=== PATIENT | female | born 1990 | race Hispanic/Latino ===

== ENCOUNTER 2021-08-13 05:58 | Day surgery (SDC) | payer OTHER ==
[2021-08-10 13:18] LABS: Absolute Lymphocytes (CBC) 1.9 K/uL (0.7-4.9); Basophils % 0.3 % (0-1.3); Hematocrit 37.3 % (36.0-45.0); Lymphocytes % 21.7 % (15.3-44.8); MPV 8.3 fL (7.6-11.3); RBC Red Blood Cell Count 4.75 M/uL (3.86-4.86)
[2021-08-10 13:30] LABS: Urine Appearance SL CLOUDY (Clear); Urine Bilirubin NEGATIVE (Negative); Urine Blood 3+ (Negative); Urine Color YELLOW (Yellow); Urine Glucose NEGATIVE (Negative); Urine Microscopic Reflex ORDER UMIC; Urine Protein NEGATIVE (Negative); Urine Specific Gravity >1.030 (1.005-1.030); Urine Urobilinogen 0.2 mg/dL (0.2-1.0)
[2021-08-10 13:32] LABS: Urine Bacteria <20 /HPF (<20); Urine Mucus SLIGHT /HPF (NONE SEEN); Urine RBC >50 /HPF (NONE SEEN)
[2021-08-13] MEDS ORDERED: SCOPOLAMINE HYDROBROMIDE PATCH TD ONE ×2 (06:12→06:18)
[2021-08-13] MEDS ORDERED: Ringers Lactate 1,000 ML IV ONE ×2 (06:12→08:30)
[2021-08-13 06:18] LABS: Specific Gravity > 1.030 (1.005-1.030)
[2021-08-13] MEDS ORDERED: propofoL 200 MG/20 ML VIAL IV ONE (07:18)
[2021-08-13] MEDS ORDERED: dexAMETHasone 10 MG/ML VIAL ONE (07:18)
[2021-08-13] MEDS ORDERED: LIDOCAINE 2% MPF 5 ML VIAL ONE (07:18)
[2021-08-13] MEDS ORDERED: ROCURONIUM 50 MG/5 ML VIAL IV ONE ×2 (07:18→11:33)
[2021-08-13] MEDS ORDERED: MIDAZOLAM HCL 2 MG/2 ML INJ ONE (07:19)
[2021-08-13] MEDS ORDERED: FENTANYL CITR 250 MCG/5 ML ONE (07:19)
[2021-08-13] MEDS ORDERED: ONDANSETRON 4 MG/2 ML VIAL ONE (07:21)
[2021-08-13] MEDS ORDERED: CELECOXIB 100 MG CAPSULE ONE (07:54)
[2021-08-13] MEDS ORDERED: ACETAMINOPHEN 500 MG TAB ONE (07:54)
[2021-08-13] MEDS ORDERED: CELECOXIB 100 MG CAPSULE PO ONE (07:56)
[2021-08-13] MEDS ORDERED: ACETAMINOPHEN 500 MG TAB PO ONE (07:56)
[2021-08-13] MEDS: CEFAZOLIN/NS 1gm 1 GM/50 ML BAG ONE ×2 (08:10→09:00)
[2021-08-13] MEDS: CEFAZOLIN/SWI 2gm 2 GM/20 ML SYR ONE ×2 (08:10→09:00)
[2021-08-13] MEDS ORDERED: BUPIVACAINE 0.25% PF 30 ML VIAL ONE (08:30)
[2021-08-13] MEDS ORDERED: METHYLENE BLUE 0.5% 10 ML AMP ONE (09:10)
[2021-08-13] MEDS ORDERED: LIDOCAINE 1% W/EPI 1:100,000 MDV 20 ML VIAL ONE (09:11)
[2021-08-13] MEDS ORDERED: NA CHLORIDE 0.9% 100 ML IV ONE (09:11)
[2021-08-13] MEDS ORDERED: GLYCOPYRROLATE 0.2 MG/ML SYR ONE ×2 (09:32→12:34)
[2021-08-13] MEDS: VASOPRESSIN 20 UNIT/ML VIAL ONE ×2 (09:50→10:57)
[2021-08-13] MEDS ORDERED: FENTANYL CITR 100 MCG/2 ML ONE (10:56)
[2021-08-13] MEDS: Ringers Lactate 1,000 ML IV ONE ×2 (11:19→12:21)
[2021-08-13] MEDS ORDERED: LABETALOL 20 MG/4ML SYRINGE IV ONE (12:03)
[2021-08-13] MEDS ORDERED: KETOROLAC 30 MG/ML INJ ONE ×2 (12:31→13:25)
[2021-08-13] MEDS ORDERED: NEOSTIGMINE 1 MG/ML -5 ML ONE (12:34)
[2021-08-13] MEDS ORDERED: Mastisol Adhesive Liq ONE (13:00)
[2021-08-13] MEDS ORDERED: MEPERIDINE HCL 25 MG/ML SYR IM PRN (13:29)
[2021-08-13] MEDS ORDERED: HYDROCODONE/APAP 5/325 MG TAB PO PRN (13:29)
[2021-08-13] MEDS ORDERED: PROMETHAZINE INJ 25 MG/ML AMP IV PRN (13:29)
--- NOTE | 2021-08-13 13:35 | P.BOP ---
Preoperative diagnosis: AUB-L, dysmenorrhea, pelvic pain Postoperative diagnosis: same and endometriosis, right paratubal cyst, Primary procedure: hysteroscopy d/c, laparoscopy myomectomy,endometriosis excision Secondary procedure: chromotubation, right para tubal cyst drainage and bio psy,minilap Other procedure(s): for myoma contained extraction Alkylation Operator: Mela Ochoa Estimated blood loss: 150 Specimen: fibroids, rt paratubal cyst bx/endo L round lig and R USL lig, post uterine Findings: endo and leiomyomata, one large compound and two others Anesthesia: GETA Complications: None Transferred to: Recovery Room Condition: Good
[2021-08-13] MEDS: HYDROMORPHONE HCL 1 MG/ML INJ ONE ×2 (13:53→14:01)
[2021-08-13] MEDS ORDERED: ALBUTEROL 2.5 MG/3 ML NEB SOL ONE (14:10)
[2021-08-13] MEDS ORDERED: HYDROCODONE/APAP 5/325 MG TAB ONE (15:48)
[2021-08-13 16:11] VITALS: BP 105/60; TEMP 98.5; O2SAT 97
[2021-08-13] MEDS ORDERED: PREGABALIN 50 MG CAP PO SCH (21:00)
--- NOTE | 2021-08-14 02:12 | OP ---
Date of Procedure: 08/13/2021 Surgeon: Daly Lopez MD Web Application Tester: Mela Ochoa. Preoperative Diagnoses: Menorrhagia, dysmenorrhea, pelvic pain, fibroids (abnormal uterine bleeding- leiomyomas), desires to have fertility, 0. Postoperative Diagnoses: Abnormal uterine bleeding-leiomyomas, dysmenorrhea, endometriosis, right pa ratubal cyst. Primary Procedure: Hysteroscopy, D and C, laparoscopy, myomectomy, endometriosis excision, chromotub ation, right paratubal cyst, drainage and biopsy. Mini lap to extract the myoma, closed contained ex traction was performed through the suprapubic port site that was extended. Anesthesia: General endotracheal. Estimated Blood Loss: 150. Specimens: Fibroids, right paratubal cyst biopsy, endometriosis of the left round ligament, right ut erosacral ligament and posterior uterine aspect, both of them together one specimen and endometrial c urettings. Findings: Leiomyomata, the largest 6.5 cm myoma with anterior with a complex myoma with at least 3-4 leiomyomata all extracted and compounded together. Then there was one on the right fundal aspect an d then one in the left posterior wall of the fundus. The last 2 were 1 subserosal and other with a s ubserosal extension and intramural fibroid, the top one most likely transmural, 4-layer closure was d one with a 2-0 V-Loc suture. Endometriosis was found in the distal right uterosacral ligament going on the serosa of the uterus th en left round ligament and the mesosalpinx closed and posterior to the myoma on the left fu ndal aspect posterior wall. All endometriosis excised. No other endo was seen anywhere else. The a ppendix appeared to be normal. No other pathology. The tube on the right side was patent. The left tube appeared to be completely intact without any hydrosalpinx or distortions. However, there was n o spill on this side. I suspect that there could be spasm, tried it twice, but it was still not very easy to identify the blue dye coming through it. Paratubal cysts were noted. The one on the right is the largest. Due to the proximity to the fimbri ated end, I did not want to excise this. So I drained it and took a good biopsy of a little firm nod ule that was present inside this paratubal cyst which was abnormal and as it was not even close to th e ovary, this was biopsied. On the left side, there was a small paratubal cyst, did not need any rem oval or drainage. Description Of Procedure: After informed consent was verified, the patient was taken back to the OR, placed in supine fashion on the operating table. General anesthesia was given. She was placed in d orsal lithotomy position. Arms were tucked by the side. Ancef was given. Abdomen, vulva, vagina, a nd perineum prepped and draped in a sterile fashion. Leonard placed to drain the bladder and speculum placed to expose the cervix. Diagnostic SlimLine hysteroscope, 30-degree lens, normal saline were us ed for direct hysteroscopy into the uterine cavity. Inside of the cavity was surveyed, it appeared to be impending, but no intracavitary masses were seen. Both tubal ostia were visualized. Scope was p ulled out. The uterine manipulator was introduced into the uterus, fixed in place. Leonard was attach ed to a drainage bag. 1 cm infraumbilical incision made with scalpel using open laparoscopy technique, fascia was incised, and peritoneum entered bluntly, S retractors placed. Annia introduced. After adequate insufflation , the patient was placed in Trendelenburg. A 10 mm suprapubic and two 5s in the left lower quadrant, left upper quadrant, anterior axillary line, and midclavicular line were placed. Then, after survey ing the pelvic cavity and noting the endometriosis which correlated with our ultrasound fin dingmaria elena, then proceeded with doing a myomectomy first. Incision was made on the anterior cephalad portion of the uterine wall after injecting with dilute va sopressin 20 cc with a dilution of 20 units mixed in 40 cc of normal saline injected with a spinal ne edle to the anterior abdominal wall. Once this was done, monopolar needle was used to incise the jennifer metrial layers until a fibroid was visualized. Fibroid was held with a single-tooth tenaculum and ex tracted by creating space all the round. Then later as this was being pulled out more, I can see the fibroids, showed that this was a compound leiomyoma and so all these were extracted one after the ot her. A 0 Vicryl suture was placed for retraction on this. Once this was removed completely, the bas e was cauterized with bipolar. This was placed in the posterior cul-de-sac. Closure was performed, almost close to the endometrial cavity, a layer was done in the sub-endometrium in a continuous runni ng fashion. Then [address] the way to the serosa were closed with a 2-0 V-Loc . Then, the myoma on the right was incised after vasopressin 10 cc was injected, incised with a monopol ar, excised, sutured with 2-0 V-Loc. Then, on the posterior wall, similar injection performed, myome ctomy performed. This was more into the myometrium. So this was closed in 2 layers. Endometriosis excision was performed first on the left round ligament. This was excised completely w ith the help of monopolar as well as a bipolar. Then, the posterior uterosacral ligament endo was ci rcumscribed first with the monopolar and then excised completely with the help of the tip of the Liga Sure. Posterior to the myoma, there was endometriotic implant, which was excised as well. Chromotubation was performed. The tubal cysts were noted. This was drained on the right side. Then biopsy was done on the wall, which was thickened and irregular. The tube filled and spilled on the right side without a problem. On the left side, did not see after injecting 46 cc of dilute methylen e blue, stopped at this, checked the fimbriated end. It was patent. So there was no need to perform anything further here. So plan is to perform postop. Thorough irrigation and suction were performed and all the trocars were removed under direct vision. The umbilical fascia closed with 0 Vicryl tag sutures, tied to each other and chromic sutures 3-0 fo r all other incisions. Suprapubically, after the specimens were all placed in a bag, this was katrin t out through the umbilical port and this was extended to 3 cm on the fascia as well and the skin the n once the specimen was slightly morcellated, it was able to be extracted without any further morcell ation was contained and the bag was removed. Fascia was closed with 0 Vicryl in a continuous running fashion. Subcuticular sutures with 4-0 Vicryls done. Then went down and removed the manipulator an d did a D and C. All instruments were removed, Leonard. Instrument and sponge counts were correct at the end of case. The patient tolerated the procedure well. She will follow up with me in 1 week. I did dis cuss all these with the . GEOVANNA/PANCHITO Voice ID: [id number] Report ID: [id number]
[2021-08-20] MEDS ORDERED: ETHINYL ESTRADIOL TD SCH (09:00)
[2021-08-20] MEDS ORDERED: NORELGESTROMIN TD SCH (09:00)
[2021-08-20] MEDS ORDERED: [UNRECOGNIZED DRUG - OTHER] TD SCH (09:00)
== END 2021-08-13 16:30 | disposition home or self-care (01) ==
LOC: OR 05:58
PROVIDERS: ATTEND Obstetrics & Gynecology
PROC: 0UJD8ZZ Inspection of Uterus and Cervix, Via Natural or Artificial Opening Endoscopic (ICD-10-PCS; 2021-08-13)
PROC: 0UB44ZZ Excision of Uterine Supporting Structure, Percutaneous Endoscopic Approach (ICD-10-PCS; 2021-08-13)
PROC: 0UB94ZZ Excision of Uterus, Percutaneous Endoscopic Approach (ICD-10-PCS; 2021-08-13)
PROC: 0WJG0ZZ Inspection of Peritoneal Cavity, Open Approach (ICD-10-PCS; 2021-08-13)
PROC: 0UDB7ZX Extraction of Endometrium, Via Natural or Artificial Opening, Diagnostic (ICD-10-PCS; principal; 2021-08-13 08:15)
DX: N80.3 Endometriosis of pelvic peritoneum (principal); R11.0 Nausea; D25.9 Leiomyoma of uterus, unspecified; E66.01 Morbid (severe) obesity due to excess calories; E28.2 Polycystic ovarian syndrome; N80.0 Endometriosis of uterus; N83.8 Other noninflammatory disorders of ovary, fallopian tube and broad ligament; Z20.822 Contact with and (suspected) exposure to COVID-19
CPT/HCPCS: 85025; 36415; 86900; 86850; 81025; 86901; 88304; 88305; 58558; 58662; 58545; 49322; U0002; J2704; J2250; J3010 ×2; J1100; J1170; J2710; J0690 ×2; J7120 ×3; J2405; 81003; 81015

== ENCOUNTER 2023-08-03 20:33 | Observation (INO) | payer OTHER ==
--- OUTSIDE RECORDS SUMMARY | 2023-08-03 20:35 | XMS REPORT | Continuity of Care Document ---
:1990 Author Organization [facility] t Address [address] [place] [address] Care Team Providers Name Role Phone [email or web address] Attending Clinician Unavailable [email or web address] Admitting Clinician Unavailable Problems This patient has no known problems. Allergies, Adverse Reactions, Alerts This patient has no known allergies or adverse reactions. Medications This patient has no known medications. Procedures This patient has no known procedures. Encounters Start End Encounter Admission Attending Care Care Encounter Source Date/Time Date/Time Type Type Clinicians Facility Department ID 2023-07-23 2023-07-23 Outpatient [email or web address] PRIV PRIV [id number] [facility] 00:00:00 00:00:00 sindya_S [id number] Medic al Results This patient has no known results.
[2023-08-03 21:38] LABS: Hematocrit 38.3 % (36.0-45.0); Lymphocytes % 8.6 % (15.3-44.8); MCV 73.3 fL (80-100); MPV 8.2 fL (7.6-11.3); Platelets 276 thou/uL (152-406); RBC Red Blood Cell Count 5.22 M/uL (3.86-4.86)
[2023-08-03] MEDS ORDERED: FAMOTIDINE 20 MG/2 ML VIAL IV ONE (21:39)
[2023-08-03] MEDS ORDERED: NA CHLORIDE 0.9% 1,000 ML ONE (21:39)
[2023-08-03] MEDS ORDERED: KETOROLAC 30 MG/ML INJ ONE (21:39)
[2023-08-03] MEDS ORDERED: ONDANSETRON 4 MG/2 ML VIAL ONE (21:39)
[2023-08-03 22:36] LABS: Albumin 3.7 g/dL (3.4-5.0); Bilirubin Total 0.9 mg/dL (0.2-1.0); Potassium 3.2 mEq/L (3.5-5.1); Protein, Total 7.8 g/dL (6.4-8.2)
[2023-08-03 23:12] LABS: Specific Gravity 1.023 (1.005-1.030)
[2023-08-03 23:33] LABS: Specific Gravity 1.023 (1.005-1.030); Urine Bacteria None Seen /HPF (<20); Urine Bilirubin NEGATIVE (Negative); Urine Blood Negative (Negative); Urine Clarity Extremely Turbid (Clear); Urine Color Yellow (Yellow); Urine Glucose NEGATIVE (Negative); Urine Mucus Slight /HPF (None Seen); Urine Protein TRACE (Negative); Urine RBC <5 /HPF (None Seen); Urine Urobilinogen 2+ (Normal)
--- NOTE | 2023-08-04 02:20 | EDPHYS ---
Physician Documentation [facility] Name: Margret Kearns Age: 32 yrs Sex: Female : 1990 Arrival Date: 08/03/2023 Time: 20:33 Bed 17 Private MD: OFEILA Physician Pedrito Grey HPI: 08/03 22:55 This 32 yrs old Female presents to ER via Ambulatory with complaints of Low kb Back Pain, Abdominal Pain, Shortness Of Breath. 22:55 The patient has not recently seen a physician. Patient is a 32-year-old female who kb presents for bilateral flank pain and upper abdominal pain that started today.. 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 - Social history:: Smoking status: Patient denies any tobacco usage or history of. Patient/guardian denies using alcohol, street drugs. ROS: 22:54 Constitutional: Negative for fever, chills, and weight loss, kb 22:54 Abdomen/GI: Positive for abdominal pain, nausea, 22:54 Back: Positive for flank pain, bilaterally, 22:54 All other systems are negative, Exam: 22:54 Constitutional: This is a well developed, well nourished patient who is awake, alert, kb and in no acute distress. Head/Face: Normocephalic, atraumatic. ENT: Moist Mucous membranes Cardiovascular: Regular rate Respiratory: Respirations even and unlabored. No increased work of breathing. Talking in full sentences Skin: Warm, dry with normal turgor. Normal color. MS/ Extremity: Pulses equal, no cyanosis. Neurovascular intact. Full, normal range of motion. Neuro: Awake and alert, GCS 15, oriented to person, place, time, and situation. Moves all extremities. Normal gait. 22:54 Abdomen/GI: Inspection: abdomen appears normal, Bowel sounds: normal, Palpation: soft, in all quadrants, moderate abdominal tenderness, in the right upper quadrant and left upper quadrant, 22:54 Back: CVA tenderness, that is mild, that is moderate, is noted bilaterally, Vital Signs: 20:46 BP 108 / 95; Pulse 76; Resp 17 S; Temp 98.6(O); Pulse Ox 100% on R/A; Weight 101.15 kg lg3 (R); Height 5 ft. 2 in. (R); 21:45 BP 113 / 64; Pulse 78; Resp 19; Pulse Ox 100% ; jj7 22:54 BP 111 / 62; Pulse 70; Resp 17; Pulse Ox 99% ; Pain 0/10; jj7 08/04 00:00 BP 121 / 57; Pulse 67; Resp 17; Pulse Ox 98% ; jj7 01:00 BP 105 / 60; Pulse 56; Resp 17; Pulse Ox 99% ; jj7 01:44 BP 104 / 56; Pulse 60; Resp 17; Pulse Ox 97% ; jj7 08/03 20:46 Body Mass Index 40.79 (101.15 kg, 157.48 cm) lg3 22:54 Pain Scale: Adult jj7 MDM: 08/03 20:43 Patient medically screened. kb 22:54 Data reviewed: vital signs, nurses notes. kb 22:55 Differential diagnosis: nephrolithiasis, pyelonephritis, UTI, pancreatitis, kb Cholelithiasis, cholecystitis. 08/04 02:19 Counseling: I had a detailed discussion with the patient and/or guardian regarding the kb historical points, exam findings, and any diagnostic results supporting the discharge/admit diagnosis, lab results, radiology results, the need for further work-up and treatment in the hospital. 02:34 Consideration of Admission/Observation Patient was admitted/placed on observation. kb Escalation of care including admission/observation considered. Management of patient was discussed with the following: Plastic Cutter: Dr Tucker, message left. . 08/03 20:49 Order name: CBC with Diff; Complete Time: 21:40 kb 08/03 20:49 Order name: CMP; Complete Time: 22:38 kb 08/03 20:49 Order name: Lipase; Complete Time: 22:38 kb 08/03 20:49 Order name: Test, Urine; Complete Time: 23:33 kb 08/03 20:49 Order name: Urinalysis w/ reflexes; Complete Time: 23:42 kb 08/03 20:49 Order name: CT Abd/Pelvis - IV Contrast Only kb 08/04 00:23 Order name: US Abdomen Limited kb 08/03 20:49 Order name: IV Saline Lock; Complete Time: 21:33 kb 08/03 20:49 Order name: Labs collected and sent; Complete Time: 21:34 kb Administered Medications: 08/03 21:34 Drug: NS 0.9% IV 1000 ml IV at 1 bolus Per protocol; 1000 mL bolus Route: IV; Rate: 1 jj7 bolus; Site: right antecubital; 21:34 Drug: Famotidine IVP 20 mg IVP once; dilute with 10 mL 0.9% NaCl; give over 2 minutes jj7 Route: IVP; Site: right antecubital; 23:05 Follow up: Response: Marked relief of symptoms jj7 21:35 Drug: TORadol - Ketorolac IVP 15 mg IVP once Route: IVP; Site: right antecubital; jj7 23:05 Follow up: Response: Marked relief of symptoms jj7 21:35 Drug: Ondansetron IVP 4 mg IVP once; over 2 minutes Route: IVP; Site: right antecubital;jj7 23:05 Follow up: Response: Marked relief of symptoms jj7 08/04 02:52 Drug: Piperacillin-Tazobactam IVPB 3.375 grams IVPB once over 60 mins; (mix in NS 100 jj7 mL) Route: IVPB; Infused Over: 60 mins; Site: right antecubital; Disposition Summary: 08/04/23 02:20 Hospitalization Ordered Notes: Hospitalization Status: Observation kb Provider: Miguel Tucker Condition: Stable kb Problem: new kb Symptoms: are unchanged kb Bed/Room Type: Standard kb Location: [facility] ER HOLD(08/04/23 03:09) Room Assignment: ERHOLD-(08/04/23 03:09) cg Diagnosis - Other cholelithiasis without obstruction kb - Abnormal results of liver function studies kb Forms: - Medication Reconciliation Form kb - SBAR form kb - Leadership Thank You Letter kb Signatures: Dispatcher [employer] Fartun Flood, PEDRO PABLO MOSS-Sonia Sena RN RN cg Laverne Louise RN RN lg3 Krystyna Maldonado RN RN jj7 Corrections: (The following items were deleted from the chart) 02:20 Tele[facility]urg [facility]ation) [facility] 02:20 kb
--- NOTE | 2023-08-04 02:20 | ER ---
Nurse's Notes [facility] Name: Margret Kearns Age: 32 yrs Sex: Female : 1990 Arrival Date: 08/03/2023 Time: 20:33 Bed 17 Private MD: Diagnosis: Other cholelithiasis without obstruction;Abnormal results of liver function studies Presentation: 08/03 20:46 Chief complaint: Patient states: pain to right and left flank radiating to lower lg3 abdomen with cold sweats. Coronavirus screen: Client denies travel out of the [place] in the last 14 days. At this time, the client does not indicate any symptoms associated with coronavirus-19. Ebola Screen: No symptoms or risks identified at this time. Initial Sepsis Screen: Does the patient meet any 2 criteria? No. Patient's initial sepsis screen is negative. Does the patient have a suspected source of infection? No. Patient's initial sepsis screen is negative. Risk Assessment: Do you want to hurt yourself or someone else? Patient reports no desire to harm self or others. Onset of symptoms is unknown. 20:46 Method Of Arrival: Ambulatory lg3 20:46 Acuity: JOANN 3 lg3 Triage Assessment: 20:48 General: Appears in no apparent distress. uncomfortable, Behavior is cooperative, lg3 anxious, fussy. Pain: Complains of pain in back and abdomen. EENT: No deficits noted. No signs and/or symptoms were reported regarding the EENT system. Neuro: No deficits noted. Price Agitation-Sedation Scale (RASS): +1 Restless Level of Consciousness is awake, alert, obeys commands, Oriented to person, place, time, situation. Cardiovascular: No deficits noted. Denies chest pain, shortness of breath, Capillary refill < 3 seconds Clubbing of nail beds is absent JVD is absent Patient's skin is warm and dry. Respiratory: No deficits noted. Airway is patent Respiratory effort is even, unlabored, Respiratory pattern is regular, symmetrical. GI: Abdomen is round non-distended, obese, Reports lower abdominal pain, upper abdominal pain, cramping, nausea. : No deficits noted. No signs and/or symptoms were reported regarding the genitourinary system. Derm: No deficits noted. No signs and/or symptoms reported regarding the dermatologic system. Skin is intact, is healthy with good turgor, Skin is dry, Skin is normal, Skin temperature is warm. Musculoskeletal: Circulation, motion, and sensation intact. Range of motion: intact in all extremities, Reports pain in back. 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 - Social history:: Smoking status: Patient denies any tobacco usage or history of. Patient/guardian denies using alcohol, street drugs. Screenin:35 [facility] ED Fall Risk Assessment (Adult) History of falling in the last 3 months, jj7 including since admission No falls in past 3 months (0 pts) Confusion or Disorientation No (0 pts) Intoxicated or Sedated No (0 pts) Impaired Gait No (0 pts) Mobility Assist Device Used No (0 pt) Altered Elimination No (0 pt) Score/Fall Risk Level 0 - 2 = Low Risk Oriented to surroundings, Maintained a safe environment. Abuse screen: Denies threats or abuse. Nutritional screening: No deficits noted. Tuberculosis screening: No symptoms or risk factors identified. Assessment: 21:35 Reassessment: SEE TRIAGE ASSESSMENT. jj7 Vital Signs: 20:46 BP 108 / 95; Pulse 76; Resp 17 S; Temp 98.6(O); Pulse Ox 100% on R/A; Weight 101.15 kg lg3 (R); Height 5 ft. 2 in. (R); 21:45 BP 113 / 64; Pulse 78; Resp 19; Pulse Ox 100% ; jj7 22:54 BP 111 / 62; Pulse 70; Resp 17; Pulse Ox 99% ; Pain 0/10; jj7 08/04 00:00 BP 121 / 57; Pulse 67; Resp 17; Pulse Ox 98% ; jj7 01:00 BP 105 / 60; Pulse 56; Resp 17; Pulse Ox 99% ; jj7 01:44 BP 104 / 56; Pulse 60; Resp 17; Pulse Ox 97% ; jj7 08/03 20:46 Body Mass Index 40.79 (101.15 kg, 157.48 cm) lg3 22:54 Pain Scale: Adult jj7 ED Course: 08/03 20:36 Patient arrived in ED. ag3 20:37 Fartun Robin [facility]-C [facility] kb 20:37 Pedrito Grey MD is Attending Physician. kb 20:48 Triage completed. lg3 20:48 Arm band placed on right wrist. lg3 21:23 Krystyna Maldonado, MIKAELA is Primary Nurse. jj7 21:25 Initial lab(s) drawn, by nm, sent to lab. Inserted saline lock: 18 gauge in right jb4 antecubital area, using aseptic technique. Blood collected. 21:34 CBC with Diff Sent. jj7 21:34 CMP Sent. jj7 21:34 Lipase Sent. jj7 21:35 Patient has correct armband on for positive identification. Bed in low position. Call jj7 light in reach. Side rails up X 1. 23:04 Test, Urine Sent. jj7 23:04 Urinalysis w/ reflexes Sent. jj7 23:58 CT Abd/Pelvis - IV Contrast Only In Process Unspecified. EDMS 08/04 01:17 US Abdomen Limited In Process Unspecified. EDMS 02:19 Miguel Tucker MD is Hospitalizing Provider. kb 13:35 No provider procedures requiring assistance completed. Patient admitted, IV remains in ld1 place. Administered Medications: 08/03 21:34 Drug: NS 0.9% IV 1000 ml IV at 1 bolus Per protocol; 1000 mL bolus Route: IV; Rate: 1 jj7 bolus; Site: right antecubital; 21:34 Drug: Famotidine IVP 20 mg IVP once; dilute with 10 mL 0.9% NaCl; give over 2 minutes jj7 Route: IVP; Site: right antecubital; 23:05 Follow up: Response: Marked relief of symptoms jj7 21:35 Drug: TORadol - Ketorolac IVP 15 mg IVP once Route: IVP; Site: right antecubital; jj7 23:05 Follow up: Response: Marked relief of symptoms jj7 21:35 Drug: Ondansetron IVP 4 mg IVP once; over 2 minutes Route: IVP; Site: right antecubital;jj7 23:05 Follow up: Response: Marked relief of symptoms jj7 08/04 02:52 Drug: Piperacillin-Tazobactam IVPB 3.375 grams IVPB once over 60 mins; (mix in NS 100 jj7 mL) Route: IVPB; Infused Over: 60 mins; Site: right antecubital; Medication: 13:36 VIS not applicable for this client. ld1 Outcome: 02:20 Decision to Hospitalize by Provider. kb 13:35 Admitted to OR accompanied by nurse, via stretcher, with chart, ld1 13:35 Condition: stable 13:35 Instructed on the need for admit, 13:36 Patient left the ED. ld1 Signatures: Dispatcher [employer] EDFartun Traore, PEDRO PABLO MOSS-Miguel Nowak, RN RN jb4 Winnie Escobar3 Laverne Louise RN RN lg3 Estella Nuñez RN RN ld1 Krystyna Maldonado RN RN jj7
[2023-08-04] MEDS ORDERED: NA CHLORIDE 0.9% 100 ML ONE ×2 (02:58→09:06)
[2023-08-04] MEDS ORDERED: PIPERACIL/TAZO 3.375 GM VIAL IV ONE ×2 (02:59→09:06)
[2023-08-04 04:50] VITALS: BMI 40.8
[2023-08-04] MEDS ORDERED: MORPHINE 4 MG/ML SYR IV PRN (07:55)
[2023-08-04] MEDS: NA CHLORIDE 0.9% 1,000 ML IV SCH ×3 (07:55→17:00)
[2023-08-04] MEDS: PIPER TAZO 3.375 GM in NA CHLORIDE 0.9% 100 ML IV SCH ×2 (09:00→17:32)
[2023-08-04] MEDS ORDERED: INFLUENZA VACCINE (for 6+ mo) 0.5 ML DOSE IMVAC ONE (09:00)
[2023-08-04] MEDS ORDERED: NA CHLORIDE 0.9% 1,000 ML ONE (09:05)
[2023-08-04] MEDS ORDERED: ONDANSETRON 4 MG/2 ML VIAL ONE ×2 (09:05→14:52)
[2023-08-04] MEDS ORDERED: MORPHINE 4 MG/ML SYR ONE (09:05)
[2023-08-04] MEDS: ONDANSETRON 4 MG/2 ML VIAL IV PRN ×2 (09:14→20:11)
--- NOTE | 2023-08-04 13:29 | RAD REPORT ---
EXAM DESCRIPTION: CT - Abdomen Pelvis W Contrast - 08/04/2023 6:52 am CLINICAL HISTORY: 32 years Female Abd pain;Flank pain COMPARISON: None TECHNIQUE: Images were obtained in axial, sagittal, and coronal planes. Intravenous contrast was adm inistered. This exam was performed according to our departmental dose-optimization program which includes use of Automated Exposure Control, adjustment of the mA and/or kV according to patient size and/or use of iterative reconstruction technique. FINDINGS: Decreased attenuation involving the liver consistent with fatty change. Unremarkable splee n, pancreas, gallbladder, and adrenal glands bilaterally. No obstructing renal or ureteral calculi bilaterally. No hydronephrosis bilaterally. Incompletely dis tended bladder versus cystitis. No perinephric fluid or stranding bilaterally. Appendix within normal limits. No bowel obstruction, perforation, or inflammation. No abnormality of the abdominal aorta or portal vein. No adenopathy or abnormal fluid collections see n. No abnormality lower lungs bilaterally. No acute osseous abnormality. IMPRESSION: Cystitis versus incomplete bladder distention. Fatty change involving the liver. No obst ructing renal or ureteral calculi bilaterally. Otherwise unremarkable study. Electronically signed by: Eileen Frazier MD 08/04/2023 12:07 AM PHYSICAL SECURITY ENGINEER Due to temporary technical issues with the PACS/Fluency reporting system, reports are being signed by the in house radiologist without review as a courtesy to ensure prompt reporting. The interpreting r adiologist is fully responsible for the content of the report.
--- NOTE | 2023-08-04 14:21 | RAD REPORT ---
EXAM DESCRIPTION: US - Abdomen Exam Limited - 08/04/2023 1:16 am CLINICAL HISTORY: 32 years, Female, ABD PAIN COMPARISON: Prior CT scan of the abdomen and pelvis performed 08/03/2023. TECHNIQUE: Utilizing a curved array transducer, real-time ultrasound evaluation of the gallbladder. FINDINGS: BILE DUCTS: Common duct measures 4.1 mm. No intrahepatic biliary ductal dilatation. GALLBLADDER: The gallbladder demonstrate a presence of layering echogenic structure with posterior sh adowing corresponding to cholelithiasis. No evidence for gallbladder wall thickening and/or pericolic cystic fluid. Sonographic Abdullahi's sign was not reported by the septic pump truck driver. IMPRESSION: Cholelithiasis without sonographic evidence of acute cholecystitis. Electronically signed by: Lee Collins MD 08/04/2023 02:18 AM GLASS TUBE BENDER Due to temporary technical issues with the PACS/Fluency reporting system, reports are being signed by the in house radiologist without review as a courtesy to ensure prompt reporting. The interpreting r adiologist is fully responsible for the content of the report.
--- NOTE | 2023-08-04 14:30 | P.HP ---
Date of Service: 08/04/23 PC: This 32-year-old female presented to the emergency room with right upper quadrant abdominal pain for diagnosis and treatment. HPC: Patient did not feel well yesterday. She had upper abdominal pain. Over the course the next 1 4 hours it radiated into her back. She cannot get comfortable, presented to the ER for evaluation and treatment. PSHx: Negative PMHx: No medical issues Social Hx: No known allergies Sys R: No cough, wheeze, shortness of breath. No chest pain or palpitations. Denies any urinary complaints. Thinks he might of had this pain off and on for a few weeks. O/E: Awake alert vital signs are stable, looks uncomfortable still at the moment despite pain medicine HEENT: Not jaundiced Chest: Air entry equal bilaterally Abd: Mild right upper quadrant tenderness [place]: Intact Data: Ultrasound demonstrates cholecystitis Impression: Acute on chronic cholecystitis, biliary colic Plan: I will taken the operating room for laparoscopic possible open cholecystectomy with cholangiogram. The risks of this procedure have been discussed. The possibility of bleeding, infection, injury to bile ducts blood vessels and intestines has been described. The possible need for an open and or further surgeries and procedures was discussed. She understands and wants us to proceed.
[2023-08-04] MEDS ORDERED: propofoL 200 MG/20 ML VIAL IV ONE (14:50)
[2023-08-04] MEDS ORDERED: FENTANYL CITR 100 MCG/2 ML ONE ×2 (14:50→15:29)
[2023-08-04] MEDS ORDERED: ROCURONIUM 50 MG/5 ML VIAL IV ONE (14:51)
[2023-08-04] MEDS ORDERED: dexAMETHasone 10 MG/ML VIAL ONE (14:51)
[2023-08-04] MEDS ORDERED: KETOROLAC 30 MG/ML INJ ONE (14:51)
[2023-08-04] MEDS ORDERED: MIDAZOLAM HCL 2 MG/2 ML INJ ONE (14:51)
[2023-08-04] MEDS ORDERED: LIDOCAINE 2% MPF 5 ML VIAL ONE (14:52)
[2023-08-04] MEDS ORDERED: SUCCINYLCHOLINE 20 MG/ML (10 ML) IV ONE (14:55)
[2023-08-04] MEDS ORDERED: GLYCOPYRROLATE 0.2 MG/ML SYR ONE (16:03)
--- NOTE | 2023-08-04 16:06 | P.OP ---
Preoperative diagnosis: Acute on chronic cholecystitis with cholelithiasis Postoperative diagnosis: The same Primary procedure: Laparoscopic cholecystectomy Secondary procedure: Cholangiogram Other procedure(s): Movable of stones from the cystic duct Anesthesia: General Estimated blood loss: Less than 10 cc Specimen: 1 gallbladder and contents Operative Technique: The patient brought the operating room and placed supine on the table. After the induction of adequate general endotracheal anesthesia, there the abdomen was prepped with a DuraPrep solution, she was draped in the usual aseptic manner. A subumbilical incision was made. This was brought down through the skin and subcutaneous tissue. The Visiport was used to enter the peritoneal cavity and created pneumoperitoneum to approximately 12 mmHg. Under direct vision a 5 mm trocar was placed in the upper midline, and 2 other 5 mm trocars on the right lateral side of the abdomen. With the patient placed in reverse Trendelenburg and the table tilted to the left were able to visualize the right upper quadrant. We could see a mildly inflamed gallbladder with a marked amount of adhesions stuck to the serosal surface. There were quite dense adhesions between the omentum and the serosal surface of the gallbladder. These were taken down using blunt and sharp dissection as well as judicious use of electrocautery. Having finally mobilized the omentum, we were now able to place a grasper on the fundus of the gallbladder. Another was placed down by Morales's pouch. Gentle dissection allowed us to finally expose both the cystic duct and artery. The cystic duct was noted to be quite dilated. A clip was placed between the gallbladder and the cystic duct. An opening was made into t he cystic duct and we were able to see that there were small stones inside there. There were approximately 1 cm of stones inside the cystic duct which we were able to disimpact using a [place] retractor. We finally got back to normal caliber of the cystic duct. The cholangiocatheter was now gently placed inside the cystic duct and irrigated with normal saline to washout any remanence and not force him into the common bile duct. We are not actually able to pass the catheter with any ease into the common bile duct most likely due to valves in that area. We were however, after inflating the balloon, to obtain her cholangiograms. The cholangiogram did show the extrahepatic biliary tree. We could see that there was flow of contrast into the duodenum. There was no evidence of any gross filling defect. At this point the catheter was removed. Clips were placed on the distal portion of the cystic duct. The cystic artery was identified clipped and divided in the usual manner. The gallbladder was now dissected free from the liver bed, placed into an Endo Catch, and brought out through the umbilical trocar site. The fascia at the umbilicus was now approximated using the Endo Close and an absorbable suture. The right upper quadrant was inspected. The irrigating fluid was aspirated from the peritoneal cavity. The few small goal gallstone crystals that we would take over the cystic duct were removed. At this point the pneumoperitoneum was collapsed, the trocars removed, and margareth applied to the skin. At the end of the procedure the patient was in a stable condition when wheeled to the recovery room. Needle sponge instrument count were correct. 10 cc of 0.25% Marcaine had been injected around her incision sites. Sterile dressings were applied. Complications: None Transferred to: Recovery Room Condition: Good
[2023-08-04] MEDS ORDERED: HYDROCODONE/APAP 7.5/325 MG TAB PO PRN (16:07)
[2023-08-04] MEDS: NA CHLORIDE 0.9% 1,000 ML ONE ×2 (16:09→16:21)
[2023-08-04] MEDS: FENTANYL CITR 100 MCG/2 ML ONE ×3 (16:42→16:57)
--- NOTE | 2023-08-04 19:01 | RAD REPORT ---
EXAM DESCRIPTION: RAD - Cholangiogram Oper-Xray Or - 08/04/2023 5:17 pm CLINICAL HISTORY: [facility] COMPARISON: None available. FINDINGS: Nine Images were sent to PACS, documenting image guided intraoperative cholangiography. No radiologist was available for the procedure, nor will any image interpretation he provided. Please r efer to the procedural report for additional details. Fluoroscopy time: 0.7 Minutes. Skin dose: 35.9 mGy IMPRESSION: Documentation of fluoroscopy utilization as above.
[2023-08-04] MEDS: MORPHINE 4 MG/ML SYR IV PRN (20:10)
[2023-08-05] MEDS: PIPER TAZO 3.375 GM in NA CHLORIDE 0.9% 100 ML IV SCH ×2 (00:52→08:20)
[2023-08-05] MEDS: NA CHLORIDE 0.9% 1,000 ML IV SCH ×4 (00:53→09:00)
[2023-08-05] MEDS: MORPHINE 4 MG/ML SYR IV PRN ×2 (02:33→12:34)
[2023-08-05 02:45] LABS: Absolute Lymphocytes (CBC) 0.6 K/uL (0.7-4.9); Hematocrit 33.8 % (36.0-45.0); MCV 73.5 fL (80-100); MPV 8.5 fL (7.6-11.3); Platelets 229 thou/uL (152-406)
[2023-08-05 03:07] LABS: Bilirubin Direct 0.2 mg/dL (0-0.2); Bilirubin Indirect, Calculated 0.2 mg/dL (0.2-0.8); Bilirubin Total 0.4 mg/dL (0.2-1.0); Potassium 3.8 mEq/L (3.5-5.1); Protein, Total 6.6 g/dL (6.4-8.2)
[2023-08-05] MEDS ORDERED: LIDOCAINE 2% MPF 5 ML VIAL ONE (09:02)
[2023-08-05] MEDS ORDERED: ROCURONIUM 50 MG/5 ML VIAL IV ONE (09:02)
[2023-08-05] MEDS ORDERED: FENTANYL CITR 100 MCG/2 ML ONE (09:02)
[2023-08-05 09:27] VITALS: BP 127/73; TEMP 98.2
[2023-08-05 10:56] VITALS: O2SAT 98
--- NOTE | 2023-08-05 13:32 | P.DS ---
Admission Date: 08/04/23 Discharge Date: 08/05/23 Disposition: ROUTINE DISCHARGE Discharge Condition: GOOD Reason for Admission: Acute postoperative abdominal pain Procedures: Laparoscopic cholecystectomy, intraoperative cholangiogram, removal of stones from the cystic duct Brief History of Present Illness: The patient presented the emergency room with severe abdominal pain located in the upper abdomen going straight across and radiating to her back. Hospital Course: The patient was evaluated in the emergency room. It was found that she had evidence of cholecystitis with biliary colic. She was brought to the operating room where she underwent a laparoscopic cholecystectomy. At the time of surgery it was found that she had stones impacted into the cystic duct which were removed. A cholangiogram was essentially normal at this point. Today she is up ambulating, tolerating a diet, and is feeling much better. Her labs also reflect with a drop in transaminases and no change in her bilirubin. She is deemed fit for discharge. Vital Signs/Physical Exam: Temp Pulse Resp BP Pulse Ox 98.2 F 50 18 127/73 95 08/05/23 08:00 08/05/23 08:00 08/05/23 12:34 08/05/23 08:00 08/05/23 12:34 Laboratory Data at Discharge: WBC 11.70 thou/uL (4.3-10.9) H 08/05/23 02:19 Hgb 10.8 g/dL (12.0-15.0) L 08/05/23 02:19 Hct 33.8 % (36.0-45.0) L 08/05/23 02:19 Plt Count 229 thou/uL (152-406) 08/05/23 02:19 Sodium 139 mEq/L (136-145) 08/05/23 02:19 Potassium 3.8 mEq/L (3.5-5.1) 08/05/23 02:19 BUN 7 mg/dL (7-18) 08/05/23 02:19 Creatinine 0.75 mg/dL (0.55-1.02) 08/05/23 02:19 Glucose 129 mg/dL (74-106) H 08/05/23 02:19 Total Bilirubin 0.4 mg/dL (0.2-1.0) 08/05/23 02:19 AST 166 U/L (15-37) H 08/05/23 02:19 ALT 419 U/L (13-56) H 08/05/23 02:19 Alkaline Phosphatase 226 U/L (45-117) H 08/05/23 02:19 Lipase 22 U/L (13-75) 08/05/23 02:19 Physician Discharge Instructions: You may shower, ambulate at home, continue incentive spirometry. Change dressings as needed. You may shower. Any questions or problems, return to the emergency room, or contact me. Diet: Regular Activity: Ad neftali Followup: Arvin Avila MD [Primary Care Provider] -
== END 2023-08-05 14:35 | disposition home or self-care (01) ==
LOC: ER 20:33 → ERHOLD 08-04 04:13 → 2ND 08-04 16:00
PROVIDERS: ADMIT Surgery; ATTEND Surgery
PROC: BF10YZZ Fluoroscopy of Bile Ducts using Other Contrast (ICD-10-PCS; 2023-08-04)
PROC: 0FT44ZZ Resection of Gallbladder, Percutaneous Endoscopic Approach (ICD-10-PCS; principal; 2023-08-04 14:00)
DX: K80.12 Calculus of gallbladder with acute and chronic cholecystitis without obstruction (principal); R79.89 Other specified abnormal findings of blood chemistry
CPT/HCPCS: 47563; 85025 ×2; 81001; 80048; 36415 ×2; 81025; 80076; 88304; 83690 ×2; 80053; 74177; 74300; 76705; 96375; 96374; 99285; Q9967; J2704; J2543 ×5; J2001 ×2; J2250; J3010 ×4; J1100; J2405 ×4; J7030 ×5